=== PATIENT | male | born 1960 | race Caucasian/White ===

== ENCOUNTER 2017-01-18 17:48 | Emergency (ER) | payer OTHER ==
[2017-01-18 18:26] VITALS: BP 140/91; PULSE 71; TEMP 98.6; BMI 26.6
--- NOTE | 2017-01-18 18:58 | PDOC ---
History of Present Illness <Amanda Montanez - Last Filed: 01/18/17 19:33> <Latha Montemayor - Last Filed: 01/18/17 21:33> - General Chief Complaint: Chest Pain Stated Complaint: CHEST PAIN Time Seen by Provider: 01/18/17 18:56 - History of Present Illness Initial Comments: 01/18/17 19:33 The patient is a 56 year old male, with a significant past medical history of IA (August 2016), who presents to the emergency department with chest tightness at 5:00 pm. Patient stated that around 5:00 this evening he began to feel throat tightness, followed by lightheadedness, numbness and tingling in his arms bilaterally. He then began to feel cold in his extremities, and his breathing was shallow. Patient states that his throat tightness was the anginal equivalent to what he felt in August when he had his heart attack. Patient also stated that he didnt sleep well last night. He says that he currently is feeling fine. He denies any recent fevers, chills, headache. He denies any recent nausea, vomit, diarrhea or constipation. He denies any recent shortness of breath. He denies any recent dysuria, frequency, urgency or hematuria. Allergies: NKA Past surgical history: Cardiac stent. Social History: Nonsmoker. Denies EtOH use and recreational drug use. Primary Care Physician: (Amanda Montanez) Past History <Amanda Montanez - Last Filed: 01/18/17 19:33> - Past Medical History Other medical history: ulcerative colitis, bladder stones - Surgical History Cardiac Surgery: Yes (stents) - Suicide/Smoking/Psychosocial Hx Smoking History: Never smoked <Latha Montemayor - Last Filed: 01/18/17 21:33> - Past Medical History Allergies/Adverse Reactions: Allergies Allergy/AdvReac Type Severity Reaction Status Date / Time No Known Allergies Allergy Verified 01/18/17 18:25 Home Medications: Ambulatory Orders Aspirin [ASA -] 81 mg PO DAILY 01/18/17 Atorvastatin Ca [Lipitor] 20 mg PO HS 01/18/17 Clopidogrel Bisulfate [Plavix -] 75 mg PO DAILY 01/18/17 Metoprolol Succinate [Toprol Xl -] 12.5 mg PO DAILY 01/18/17 Tamsulosin HCl [Flomax] 0.4 mg PO DAILY 01/18/17 Cardiac Specific PMH - Complaint Specific PMHX Myocardial Infarction: Yes <Latha Montemayor - Last Filed: 01/18/17 21:33> Review of Systems - Review of Systems Able to Perform ROS?: Yes <Amanda Montanez - Last Filed: 01/18/17 19:33> <Latha Montemayor - Last Filed: 01/18/17 21:33> - Review of Systems Comments:: 01/18/17 19:40 CONSTITUTIONAL: Absent: fever, chills, diaphoresis, generalized weakness, malaise, loss of appetite HEENT: Absent: rhinorrhea, nasal congestion, throat pain, throat swelling, difficulty swallowing, mouth swelling, ear pain, eye pain, visual Changes CARDIOVASCULAR: Present: chest pain, lightheadedness. Absent: syncope, palpitations, irregular heart rate, peripheral edema RESPIRATORY: Present: shallow breathing Absent: cough,dyspnea with exertion, orthopnea, wheezing, stridor, hemoptysis GASTROINTESTINAL: Absent: abdominal pain, abdominal distension, nausea, vomiting, diarrhea, constipation, melena, hematochezia GENITOURINARY: Absent: dysuria, frequency, urgency, hesitancy, hematuria, flank pain, genital pain MUSCULOSKELETAL: Absent: myalgia, arthralgia, joint swelling SKIN: Absent: rash, itching, pallor HEMATOLOGIC/IMMUNOLOGIC: Absent: easy bleeding, easy bruising, lymphadenopathy, frequent infections ENDOCRINE: Absent: unexplained weight gain, unexplained weight loss, heat intolerance, cold intolerance NEUROLOGIC: Present: numbness and tingling in extremities Absent: headache, focal weakness or paresthesias, dizziness, unsteady gait, seizure, mental status changes, bladder or bowel incontinence PSYCHIATRIC: Absent: anxiety, depression, suicidal or homicidal ideation, hallucinations. (Amanda Montanez) *Physical Exam <Amanda Montanez - Last Filed: 01/18/17 19:33> <Latha Montemayor - Last Filed: 01/18/17 21:33> - Vital Signs Last Vital Signs Temp Pulse Resp BP Pulse Ox 98.6 F 71 18 140/91 100 01/18/17 18:23 01/18/17 18:23 01/18/17 18:23 01/18/17 18:23 01/18/17 18:23 - Physical Exam Comments: 01/18/17 19:40 GENERAL: Well developed, well nourished. Awake and alert. No acute distress. HEENT: Normocephalic, atraumatic. PERRLA, EOMI. No conjunctival pallor. Sclera are non- icteric. Moist mucous membranes. Oropharynx is clear. NECK: Supple. Full ROM. No JVD. Carotid pulses 2+ and symmetric, without bruits. No thyromegaly. No lymphadenopathy. CARDIOVASCULAR: Regular rate and rhythm. No murmurs, rubs, or gallops. Distal pulses are 2+ and symmetric. PULMONARY: No evidence of respiratory distress. Lungs clear to auscultation bilaterally. No wheezing, rales or rhonchi. ABDOMINAL: Soft. Non-tender. Non-distended. No rebound or guarding. No organomegaly. Normoactive bowel sounds. MUSCULOSKELETAL Normal range of motion at all joints. No bony deformities or tenderness. No CVA tenderness. EXTREMITIES: No cyanosis. No clubbing. No edema. No calf tenderness. SKIN: Warm and dry. Normal capillary refill. No rashes. No jaundice. NEUROLOGICAL: Alert, awake, appropriate. Cranial nerves 2-12 intact. No deficits to light touch and temperature in face, upper extremities and lower extremities. No motor deficits in the in face, upper extremities and lower extremities. Normoreflexic in the upper and lower extremities. Normal speech. Toes are down-going bilaterally. Gait is normal without ataxia. PSYCHIATRIC: Cooperative. Good eye contact. Appropriate mood and affect. (Amanda Montanez) ED Treatment Course - LABORATORY CBC & Chemistry Diagram: 01/18/17 19:22 01/18/17 19:22 <Amanda Montanez - Last Filed: 01/18/17 19:33> - LABORATORY CBC & Chemistry Diagram: 01/18/17 19:22 01/18/17 19:22 <Latha Montemayor - Last Filed: 01/18/17 21:33> - ADDITIONAL ORDERS Additional order review: Laboratory Results 01/18/17 01/18/17 19:22 19:22 PT with INR 11.80 INR 1.04 Sodium 138 Potassium 3.8 Chloride 104 Carbon Dioxide 25 Anion Gap 9 BUN 22 H Creatinine 1.0 Creat Clearance w eGFR > 60 Random Glucose 107 H Calcium 9.1 Magnesium 2.1 Total Bilirubin 0.5 AST 27 ALT 66 Alkaline Phosphatase 64 Creatine Kinase 300 Creatine Kinase Index 0.3 CK-MB (CK-2) 1.165 Troponin I < 0.02 Total Protein 7.1 Albumin 4.3 01/18/17 19:22 RBC 5.39 MCV 79.4 L MCHC 33.4 RDW 13.9 MPV 8.8 Neutrophils % 80.2 Lymphocytes % 11.1 Monocytes % 6.8 Eosinophils % 0.6 Basophils % 1.3 - RADIOLOGY Radiology Studies Ordered: Category Date Time Status CHEST PA & LAT [RAD] Stat Radiology 01/18/17 18:59 Completed - Medications Given in the ED: ED Medications Discontinued Medications Generic Name Dose Route Start Last Admin Trade Name Freq PRN Reason Stop Dose Admin Aspirin 162 mg 01/18/17 18:59 01/18/17 19:24 Asa - PO 01/18/17 19:00 162 mg ONCE ONE Administration Medical Decision Making <Amanda Montanez - Last Filed: 01/18/17 19:33> <Latha Montemayor - Last Filed: 01/18/17 21:33> - Medical Decision Making 01/18/17 21:27 78-year-old male called 911 this afternoon after starting to feel ill. He has a history of having a heart attack in the summer and he does have a cardiac stent. His physicians are not local. He started feel discomfort in his throat , dizziness. Then he started to have tingling in both arms. He did not have vomiting or diaphoresis. The episode lasted about 15 minutes. Upon arrival, symptoms had resolved. 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 There is no ST elevations or significant ST depressions on today's EKG Cardiac enzyme was negative Chest x-ray was negative for any acute pulmonary disease CBC and chemistries are unremarkable The patient did receive an aspirin earlier He is currently chest pain-free He does not want to stay for a second cardiac enzyme, he does not to stay for continued cardiac monitoring and he refuses admission to observation telemetry. He wants to leave the ER at this time. He is aware of the risks and consequences. He will sign out AGAINST MEDICAL ADVICE plan - he wants to see his cardiaologist tomorrow (Latha Montemayor) *DC/Admit/Observation/Transfer <Amanda Montanez - Last Filed: 01/18/17 19:33> <Latha Montemayor - Last Filed: 01/18/17 21:33> Diagnosis at time of Disposition: Atypical chest pain - Discharge Dispostion Disposition: AGAINST MEDICAL ADVICE - Referrals Referrals: Sim Eddy MD [Primary Care Provider] - - Patient Instructions Printed Discharge Instructions: DI for Atypical Chest Pain Additional Instructions: please return for any recurrent symptoms - Attestations Scribe Attestion: 01/18/17 19:41 Documentation prepared by Amanda Montanez, acting as medical technologist prn for Latha Montemayor MD. (Amanda Montanez)
[2017-01-18] MEDS ORDERED: ASPIRIN 81 MG CHEWABLE TABLETS PO ONE (18:59)
[2017-01-18] MEDS ORDERED: ASPIRIN 81 MG CHEWABLE TABLETS ONE (19:16)
[2017-01-18 19:29] LABS: BASOPHIL 1.3 % (0-2.0); EOSINOPHIL 0.6 % (0-4.5); MCH 26.5 pg (25.7-33.7); MCHC 33.4 g/dl (32.0-35.9); MEAN CELL VOLUME 79.4 fl (80-96); MEAN PLT VOLUME 8.8 fl (7.5-11.1); NEUTROPHILS 80.2 % (42.8-82.8); PLATELET COUNT 160 K/MM3 (134-434); RDW 13.9 % (11.9-15.9); WHITE BLOOD COUNT 10.1 K/mm3 (4.0-10.0)
[2017-01-18 19:48] LABS: INR 1.04 (0.82-1.09); PROTHROMBIN TIME (PATIENT) 11.8 SEC (9.98-11.88)
[2017-01-18 19:57] LABS: ALBUMIN 4.3 g/dl (3.4-5.0); ANION GAP 9 (8-16); BILIRUBIN,TOTAL 0.5 mg/dL (0.2-1.0); CALCIUM 9.1 mg/dL (8.5-10.1); CO2 25 mmol/L (21-32); GLUCOSE,RANDOM 107 mg/dL (74-106); MAGNESIUM 2.1 mg/dL (1.8-2.4); SGOT/AST 27 U/L (15-37); SGPT/ALT 66 U/L (12-78); TOT PROT 7.1 g/dl (6.4-8.2)
[2017-01-18 20:00] LABS: ALK PHOS 64 U/L (45-117); CPK 300 IU/L (39-308); TROPONIN I < 0.02 ng/ml (0.00-0.05)
--- NOTE | 2017-01-19 13:05 | EKG ---
Test Reason : Blood Pressure : / mmHG Vent. Rate : 068 BPM Atrial Rate : 068 BPM P-R Int : 174 ms QRS Dur : 096 ms QT Int : 416 ms P-R-T Axes : 064 016 009 degrees QTc Int : 442 ms NORMAL SINUS RHYTHM WITH SINUS ARRHYTHMIA INFERIOR INFARCT , AGE UNDETERMINED CANNOT RULE OUT ANTERIOR INFARCT , AGE UNDETERMINED ABNORMAL ECG NO PREVIOUS ECGS AVAILABLE Confirmed by ALISON QUINN MD ([id number]) on 01/19/2017 1:05:23 PM Referred By: Confirmed By:ALISON QUINN MD
== END 2017-01-18 21:57 | disposition left against medical advice (07) ==
LOC: JER 17:48
DX: R07.89 Other chest pain (principal)
CPT/HCPCS: 36415; 71020-TC; 80053; 82550; 82553; 83735; 84484; 85025; 85610; 93005; 93010; 99283-25